=== PATIENT | female | born 2000 | race Caucasian/White ===

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

== ENCOUNTER 2020-03-11 02:23 | Inpatient (IN) | payer OTHER ==
--- OUTSIDE RECORDS SUMMARY | 2020-03-11 02:25 | XMS REPORT | Continuity of Care Document ---
:2000 Author Organization [facility] t Address [address] [place] [address] Dr. Melton. [address] [place] [address] Care Team Providers Name Role Phone Lab, [place] I Attending Clinician Unavailable Problems This patient has no known problems. Allergies, Adverse Reactions, Alerts This patient has no known allergies or adverse reactions. Medications This patient has no known medications. Procedures This patient has no known procedures. Encounters Start End Encounter Admission Attending Care Care Encounter Source Date/Time Date/Time Type Type Clinicians Facility Department ID 2019-09-12 2019-09-12 Laboratory Lab, [facility] [id number] 13:55:19 14:15:19 Only Fam Pob I [facility] [id number] [employer] [id number] [place] [phone] nal [address] Results This patient has no known results.
[2020-03-11] MEDS ORDERED: MEPERIDINE HCL 25 MG/ML SYR IV PRN (02:32)
[2020-03-11] MEDS ORDERED: PROMETHAZINE INJ 25 MG/ML AMP IM PRN (02:32)
[2020-03-11] MEDS ORDERED: METHYLERGONOVINE 0.2MG/ML AMP IM PRN (02:32)
[2020-03-11] MEDS ORDERED: CARBOPROST TROME 250 MCG/ML IM PRN (02:32)
[2020-03-11] MEDS ORDERED: BUTORPHANOL 1 MG/ML INJ IV PRN (02:32)
[2020-03-11] MEDS ORDERED: MIDAZOLAM HCL 2 MG/2 ML INJ IV PRN (02:32)
[2020-03-11] MEDS ORDERED: OXYTOCIN/LR 20 UNIT/1,000 ML BAG IV SCH ×2 (03:00→05:00)
[2020-03-11] MEDS ORDERED: Ringers Lactate 1,000 ML IV SCH (03:00)
[2020-03-11 03:29] LABS: Urine Appearance CLOUDY; Urine Bilirubin NEGATIVE (NEG); Urine Blood 3+ (NEG); Urine Color YELLOW; Urine Glucose NEGATIVE (NEG); Urine Protein NEGATIVE (NEG); Urine Urobilinogen 0.2 mg/dL (0.2-1.0)
[2020-03-11 03:30] LABS: Urine Microscopic Reflex ORDER UMIC
[2020-03-11 03:32] LABS: Absolute Lymphocytes (CBC) 2.4 K/uL (0.7-4.9); Basophils % 0.5 % (0-1.3); Hematocrit 32.8 % (36.0-45.0); Lymphocytes % 23.3 % (15.3-44.8); MPV 10.9 fL (7.6-11.3); RBC Red Blood Cell Count 4.03 M/uL (3.86-4.86)
[2020-03-11 03:41] LABS: Urine Bacteria >50 /HPF (<20); Urine RBC >50 /HPF (NONE SEEN); Urine Urothelial Cells <5 /HPF (NONE SEEN)
[2020-03-11 03:43] LABS: RPR (Rapid Plasma Reagin) NON-REACT (NON-REACT)
[2020-03-11 03:44] VITALS: BMI 43.4
[2020-03-11] MEDS ORDERED: FENTANYL CITR 100 MCG/2 ML IV ONE (04:01)
[2020-03-11] MEDS ORDERED: FENTANYL/BUPIVACAINE/NS/PF 200 MCG/100 ML BAG EP PRN (04:01)
[2020-03-11] MEDS ORDERED: BUPIVACAINE 0.25% PF 30 ML VIAL IV ONE (04:10)
[2020-03-11] MEDS ORDERED: LIDOCAINE 1% MPF 30 ML VIAL ONE (04:20)
[2020-03-11] MEDS ORDERED: DOCUSATE NA/SENNA CONC 1 TAB PO PRN (04:37)
[2020-03-11] MEDS ORDERED: ACETAMINOPHEN 500 MG TAB PO PRN (04:37)
[2020-03-11] MEDS ORDERED: DIPHENHYDRAMINE 25 MG TAB/CAP PO PRN (04:37)
[2020-03-11] MEDS ORDERED: Oxycodone HCl/Acetaminophen 1 TAB TAB PO PRN (04:37)
[2020-03-11] MEDS ORDERED: BISACODYL 10 MG RECTAL SUPP PR PRN (04:37)
--- NOTE | 2020-03-11 05:06 | PREOPHP ---
Date of Admission: 03/11/2020 History Of Present Illness: Araceli Castro is 19-year-old 3, para 2, at 39 weeks, scheduled for induction today, came in, in active labor. Received Stadol 1 mg IV, Phenergan 25 mg IM. Rh posi tive, immune to rubella, strep negative, admitted for stabilization and delivery. Physical Examination: HEENT: Clear. Pupils equal, round, and reactive to light and accommodation. Conjunctivae well perf used. No oral, lingual, or buccal lesions. Chest and Lungs: Clear. Heart: Without murmurs, thrills, heaves, or rubs on previous visits and breasts without masses. Abdomen: Term size. Extremities: Clear without edema, cyanosis, or clubbing. Plan: Admit for stabilization and delivery. JEROME/JASON Voice ID: [id number]
--- NOTE | 2020-03-11 05:06 | OP ---
Surgeon: Obi Mishra MD 19-year-old, scheduled for induction today, came in active labor and received Stadol 1 mg IV, Phenerg an 25 mg IM, went rapidly to complete at 9.5 cm, had rupture membranes, clear fluid, within the next 5 minutes was delivered of an estimated 7-1/2 to 8 pounds female, Apgars 9 and 9. Small first-degree laceration on the right side of the introitus, sutured with 3-0 chromic. Local infiltration, 5 stit ches running locked. Schultze delivery of the placenta inspected and noted to be intact and normal 1 50 cc or less blood loss. Tolerated all procedures well. Rh positive, immune to Rubella. Negative strep screen. Final Diagnoses: 1.Term intrauterine . 2.Spontaneous delivery. JEROME/JASON Voice ID: [id number] Report ID: [id number]
[2020-03-11] MEDS: IBUPROFEN 200 MG TAB PO PRN ×2 (07:01→13:12)
--- NOTE | 2020-03-11 07:53 | PN ---
Araceli Castro afebrile, has not ambulated yet. Lochia is normal. We will get rid of her Massey. I will get rid of her IV, feed her breakfast and if she does well today, send her home tomor row. Again, we have offered a Tdap shot and a flu shot. She is having no issues right now and no co mplaints. JEROME/JASON Voice ID: [id number] Report ID: [id number]
[2020-03-11] MEDS: Oxycodone HCl/Acetaminophen 1 TAB TAB PO PRN (21:20)
[2020-03-12] MEDS: Oxycodone HCl/Acetaminophen 1 TAB TAB PO PRN ×2 (04:28→12:25)
--- NOTE | 2020-03-12 07:18 | DS ---
Hospital Course: Araceli Castro 19-year-old 3, para 2, at 39 weeks, came in and delivered sp ontaneously of an 8 pounds 8 ounces female, Apgars 9 and 9. Very small mucosal laceration repaired w ith 3-0 chromic running locked stitch, approximately 5 stitches under local infiltration. Ryley jorgensen elivery of the placenta. Minimal blood loss 150 cc. Rh positive. Immune to rubella, negative strep . Negative COVID. afebrile, ambulating, and voiding. Lochia is normal, will be dismisse d this morning to report back to my office in 6 weeks for followup, to report any temperature elevati on of 100 degrees or greater, severe pain, heavy bleeding, or any other type of abnormality. Request s no analgesics on dismissal. Final Diagnoses: Term intrauterine 39 weeks. Spontaneous vaginal delivery. Tdap and flu shots offered. JEROME/JASON Voice ID: [id number] Report ID: [id number]
[2020-03-12] MEDS ORDERED: Tdap (Diph,Pertuss(Acell),Tet Vac) 0.5 ML SYR IMVAC ONE (09:13)
[2020-03-12 13:45] VITALS: BP 139/75; TEMP 98
[2020-03-13 19:51] LABS: HBsAG Nonreactive (Nonreactive)
== END 2020-03-12 12:40 | disposition home or self-care (01) | DRG 807 ==
LOC: 2ND-WC 02:23
PROVIDERS: ADMIT Specialist; ATTEND Specialist
PROC: 10E0XZZ Delivery of Products of Conception, External Approach (ICD-10-PCS; principal; 2020-03-11)
PROC: 0HQ9XZZ Repair Perineum Skin, External Approach (ICD-10-PCS; 2020-03-11)
PROC: 10907ZC Drainage of Amniotic Fluid, Therapeutic from Products of Conception, Via Natural or Artificial Opening (ICD-10-PCS; 2020-03-11)
DX: O70.0 First degree perineal laceration during delivery (principal); Z37.0 Single live birth; Z3A.39 39 weeks gestation of pregnancy; Z23 Encounter for immunization; Z20.822 Contact with and (suspected) exposure to COVID-19
CPT/HCPCS: 36415; 81003; 81015; 85025; 86592; 86901; 87086; 87088; 87340; 90471; 90715; J0595; J2210; J2550; J2590; J7120; U0003

== ENCOUNTER 2021-08-12 02:49 | Emergency (ER) | payer OTHER ==
--- OUTSIDE RECORDS SUMMARY | 2021-08-12 02:51 | XMS REPORT | Continuity of Care Document ---
:2000 Author Organization [facility] t Address [address] [place] [address] Dr. Mel[address]. [address] [place] [address] Care Team Providers Name Role Phone Saritha, [place] I Attending Clinician Unavailable Jairo LEIGH Attending Clinician Payers Payer Name Policy Type Policy Number Effective Date Expiration Date S ource Problems This patient has no known problems. Allergies, Adverse Reactions, Alerts Allergy Allergy Status Severity Reaction(s) Onset Inactive Treating Comm ents Source Name Type Date Date Clinician NO KNOWN Drug Active Univers ALLERGIE Class ity of S [facility] Social History Social Habit Start Date Stop Date Quantity Comments Source [facility] to [facility]2 [facility] sure [facility] Smoking Status Start Date Stop Date Source Unknown if ever [facility] Medications This patient has no known medications. Procedures This patient has no known procedures. Encounters Start End Encounter Admission Attending Care Care Encounter Source Date/Time Date/Time Type Type Clinicians Facility Department ID 2019-09-12 2019-09-12 Laboratory Lab, [facility] ..[id number] 13:55:19 14:15:19 Only Fam Pob I Health [id number] [place] [id number] [employer] [phone] nal [address] 2019-09-12 2019-09-12 Laboratory Lab, [facility] Fam Pob I [facility] [id number] [facility] 13:55:19 14:15:19 Only [facility] [id number] ity of [place] [id number] Parth Mckeon [phone] [place] [address] [address] 2019-09-12 2019-09-12 Outpatient R [facility] [id number] Univers 14:00:00 14:00:00 ity of [facility] Results This patient has no known results.
[2021-08-12 03:25] LABS: Absolute Lymphocytes (CBC) 3.8 K/uL (0.7-4.9); Hematocrit 37.8 % (36.0-45.0); MPV 9.6 fL (7.6-11.3); RBC Red Blood Cell Count 4.57 M/uL (3.86-4.86)
[2021-08-12 03:34] LABS: BUN Blood Urea Nitrogen 17 mg/dL (7-18); Bicarbonate 24 mmol/L (21-32); Glomerular Filtration Rate 126 ml/min (=/>90); Glucose Level 98 mg/dL (74-106); Potassium 3.8 mmol/L (3.5-5.1); Sodium Level 137 mmol/L (136-145)
[2021-08-12 03:47] LABS: Troponin High Sensitivity < 3.0 pg/mL (<58.9)
[2021-08-12] MEDS ORDERED: METHYLPREDNISOLONE 125 MG INJ ONE (04:37)
[2021-08-12] MEDS ORDERED: FAMOTIDINE 20 MG/2 ML VIAL IV ONE (04:38)
[2021-08-12] MEDS ORDERED: KETOROLAC 30 MG/ML INJ ONE (04:38)
--- NOTE | 2021-08-12 05:07 | ER ---
Nurse's Notes [facility] Name: Araceli Castro Age: 21 yrs Sex: Female : 2000 Arrival Date: 08/12/2021 Time: 02:51 Bed 20 Private MD: Diagnosis: Chest pain, unspecified Presentation: 08/12 03:05 Chief complaint: Patient states: "I'm having bad chest pain, it started 2 days ago and as6 it just keeps getting worse". Coronavirus screen: At this time, the client does not indicate any symptoms associated with coronavirus-19. Ebola Screen: No symptoms or risks identified at this time. Initial Sepsis Screen: Does the patient meet any 2 criteria? No. Patient's initial sepsis screen is negative. Does the patient have a suspected source of infection? No. Patient's initial sepsis screen is negative. Risk Assessment: Do you want to hurt yourself or someone else? Patient reports no desire to harm self or others. Onset of symptoms was August 10, 2021. 03:05 Method Of Arrival: Ambulatory as6 03:05 Acuity: ANISHA 3 as6 Triage Assessment: 03:11 General: Appears in no apparent distress. Behavior is appropriate for age. Pain: ke1 Complains of pain in chest. Cardiovascular: Capillary refill < 3 seconds JVD is absent Patient's skin is warm and dry. Respiratory: Airway is patent Trachea midline Respiratory effort is even, unlabored, Respiratory pattern is regular, symmetrical. Historical: - Allergies: 03:07 No Known Allergies; as6 - Home Meds: 03:07 None [Active]; as6 - PMHx: 03:07 None; as6 - PSHx: 03:07 Tonsillectomy; as6 - Immunization history:: Client reports having NOT received the Covid vaccine. - Social history:: Smoking status: Patient denies any tobacco usage or history of. Screenin:15 Abuse screen: Denies threats or abuse. Nutritional screening: No deficits noted. ke1 Tuberculosis screening: No symptoms or risk factors identified. Fall Risk None identified. Assessment: 03:11 Pain: Complains of pain in chest. ke1 03:13 Pain: Pain does not radiate. Pain currently is 6 out of 10 on a pain scale. Pain began ke1 2-3 days ago. Neuro: Ruelas Agitation-Sedation Scale (RASS): 0 - Alert and Calm Level of Consciousness is awake, alert, Oriented to person, place, time, situation. Cardiovascular: Denies diaphoresis, lightheadedness, shortness of breath, Capillary refill < 3 seconds JVD is absent Patient's skin is warm and dry. Respiratory: Airway Respiratory effort is even, unlabored, Respiratory pattern is regular, symmetrical. 03:18 Cardiovascular: Rhythm is sinus rhythm. ke1 03:44 Reassessment: Patient appears in no apparent distress at this time. No changes from ke1 previously documented assessment. Patient and/or family updated on plan of care and expected duration. Pain level reassessed. Patient is alert, oriented x 3, equal unlabored respirations, skin warm/dry/pink. 05:00 Reassessment: Patient appears in no apparent distress at this time. Patient denies pain ke1 at this time. Patient states feeling better. Patient states symptoms have improved. Vital Signs: 03:05 BP 138 / 95; Pulse 72; Resp 17 S; Temp 98.7(O); Pulse Ox 99% on R/A; Weight 124.74 kg as6 (R); Height 5 ft. 9 in. (175.26 cm) (R); Pain 6/10; 03:16 BP 138 / 95; Pulse 64; Resp 26; Pulse Ox 100% ; ke1 03:44 BP 121 / 74; Pulse 73; Resp 17; Pulse Ox 100% on R/A; ke1 04:39 BP 113 / 64; Pulse 62; Resp 18; Pulse Ox 100% ; ke1 03:05 Body Mass Index 40.61 (124.74 kg, 175.26 cm) as6 ED Course: 02:51 Patient arrived in ED. as 02:55 Babak Cordero MD is Attending Physician. kdr 03:02 Viri Tineo, ALVARO is Primary Nurse. ke1 03:07 Triage completed. as6 03:08 Arm band placed on. as6 03:08 Inserted saline lock: 20 gauge in right antecubital area, using aseptic technique. as6 Blood collected. 03:12 XRAY Chest (1 view) In Process Unspecified. EDMS 03:16 Bed in low position. Call light in reach. monitoring engineer on. Pulse ox on. NIBP on. ke1 05:00 Patient maintains SpO2 saturation greater than 95% on room air. ke1 05:11 No provider procedures requiring assistance completed. ke1 Administered Medications: 04:38 Drug: Pepcid (famotidine) 20 mg Route: IVP; Site: right antecubital; ke1 05:00 Follow up: Response: Marked relief of symptoms ke1 04:39 Drug: Ketorolac 15 mg Route: IVP; Site: right antecubital; ke1 05:00 Follow up: Response: Marked relief of symptoms ke1 04:39 Drug: SOLU-Medrol (methylPrednisoLONE) 125 mg Route: IVP; Site: right antecubital; ke1 05:00 Follow up: Response: Marked relief of symptoms ke1 Outcome: 05:06 Discharge ordered by . kdr 05:17 Discharged to home ambulatory. ke1 05:17 Condition: good 05:17 Discharge instructions given to patient. 05:18 Patient left the ED. ke1 Signatures: Dispatcher [employer] EDMS Babak Cordero MD MD kdr Martinez, Amelia as Slawson, Ashby, RN RN as6 Viri Tineo RN RN ke1
--- NOTE | 2021-08-12 05:07 | EDPHYS ---
Physician Documentation [facility] Name: Araceli Castro Age: 21 yrs Sex: Female : 2000 Arrival Date: 08/12/2021 Time: 02:51 Bed 20 Private MD: ED Physician Babak Cordero Historical: - Allergies: 08/12 03:07 No Known Allergies; as6 - Home Meds: 03:07 None [Active]; as6 - PMHx: 03:07 None; as6 - PSHx: 03:07 Tonsillectomy; as6 - Immunization history:: Client reports having NOT received the Covid vaccine. - Social history:: Smoking status: Patient denies any tobacco usage or history of. Exam: 04:26 ECG was reviewed by the Attending Physician. kdr Vital Signs: 03:05 BP 138 / 95; Pulse 72; Resp 17 S; Temp 98.7(O); Pulse Ox 99% on R/A; Weight 124.74 kg as6 (R); Height 5 ft. 9 in. (175.26 cm) (R); Pain 6/10; 03:16 BP 138 / 95; Pulse 64; Resp 26; Pulse Ox 100% ; ke1 03:44 BP 121 / 74; Pulse 73; Resp 17; Pulse Ox 100% on R/A; ke1 04:39 BP 113 / 64; Pulse 62; Resp 18; Pulse Ox 100% ; ke1 03:05 Body Mass Index 40.61 (124.74 kg, 175.26 cm) as6 MDM: 05:06 Patient medically screened. kdr 08/12 02:55 Order name: Basic Metabolic Panel; Complete Time: 04:16 kdr 08/12 02:55 Order name: CBC with Diff; Complete Time: 03:39 kdr 08/12 02:55 Order name: Troponin HS; Complete Time: 04:16 kdr 08/12 02:55 Order name: XRAY Chest (1 view) kdr 08/12 02:55 Order name: EKG; Complete Time: 02:56 kdr 08/12 02:55 Order name: Cardiac monitoring; Complete Time: 03:05 kdr 08/12 02:55 Order name: EKG - Nurse/Tech; Complete Time: 03:05 kdr 08/12 02:55 Order name: IV Saline Lock; Complete Time: 03:05 kdr 06/22 02:55 Order name: Labs collected and sent; Complete Time: 03: kdr 08/12 02:55 Order name: O2 Per Protocol; Complete Time: 03: kdr 08/12 02:55 Order name: O2 Sat Monitoring; Complete Time: 03:05 kdr EC:26 Rate is 65 beats/min. Rhythm is regular, Normal Sinus Rhythm with No ectopy. QRS [place] kdr is Normal. [place] interval is normal. QRS interval is normal. QT interval is normal. Clinical impression: Normal ECG. Administered Medications: 04:38 Drug: Pepcid (famotidine) 20 mg Route: IVP; Site: right antecubital; ke1 05:00 Follow up: Response: Marked relief of symptoms ke1 04:39 Drug: Ketorolac 15 mg Route: IVP; Site: right antecubital; ke1 05:00 Follow up: Response: Marked relief of symptoms ke1 04:39 Drug: SOLU-Medrol (methylPrednisoLONE) 125 mg Route: IVP; Site: right antecubital; ke1 05:00 Follow up: Response: Marked relief of symptoms ke1 Disposition Summary: 08/12/21 05:06 Discharge Ordered Location: Home kdr Problem: new kdr Symptoms: have improved kdr Condition: Stable kdr Diagnosis - Chest pain, unspecified kdr Followup: kdr - With: Private Physician - When: 2 - 3 days - Reason: If symptoms return, Further diagnostic work-up, Recheck today's complaints, Continuance of care, Re-evaluation by your physician Discharge Instructions: - Discharge Summary Sheet kdr - Chest Wall Pain, [id number] kdr - Nonspecific Chest Pain, Adult, [id number] kdr Forms: - Medication Reconciliation Form kdr - Thank You Letter kdr Prescriptions: - Ibuprofen 600 mg Oral Tablet - take 1 tablet by ORAL route every 6 hours As needed take with food; 30 tablet; kdr Refills: 0, Product Selection Permitted - Medrol (Dev) 4 mg Oral Tablets, Dose Pack - take 1 tablet by ORAL route as directed - follow package instructions; 1 kdr packet; Refills: 0, Product Selection Permitted Signatures: Dispatcher [employer] Babak Napoles MD MD kdr Slawson, Ashby, RN RN as6 Viri Tineo RN RN ke1
[2021-08-12 05:24] VITALS: TEMP 98.7
[2021-08-12 05:26] VITALS: O2SAT 100
[2021-08-12 05:30] VITALS: BP 113/64
--- NOTE | 2021-08-12 07:17 | EKG ---
Test Date: 2021-08-12 Test Time: 02:56:38 Telesales Specialist: RADHA MEASUREMENT RESULTS: Intervals: Rate: 65 ME: 128 QRSD: 94 QT: 394 QTc: 409 Malcom: P: 45 ME: 128 QRS: 23 T: 34 INTERPRETIVE STATEMENTS: Normal sinus rhythm Normal ECG Compared to ECG 02/05/2014 09:01:58 No significant changes Electronically Signed On 08-12-21 07:17:05 CDT by Junior Cody
--- NOTE | 2021-08-12 13:28 | RAD REPORT ---
EXAM DESCRIPTION: RAD - Chest Single View - 08/12/2021 3:10 am COMPARISON: None. CLINICAL HISTORY: CHEST PAIN FINDINGS: A single AP view of the chest demonstrates a normal cardiomediastinal silhouette. No pneumothorax or pleural effusion. No consolidation or pulmonary edema. Osseous structures are intact. IMPRESSION: No acute chest process. Electronically signed by: Tarik Guerrero MD 08/12/2021 3:20 AM CDT Due to temporary technical issues with the PACS/Fluency reporting system, reports are being signed by the in house radiologist without review as a courtesy to ensure prompt reporting. The interpreting r adiologist is fully responsible for the content of the report.
== END 2021-08-12 05:18 | disposition home or self-care (01) ==
LOC: ER 02:49
DX: R07.9 Chest pain, unspecified (principal)
CPT/HCPCS: 93005; 85025; 80048; 36415; 84484; 71045; 96375; 96374; 99285; J2930; J3490